=== PATIENT | female | born 1995 | race Caucasian/White ===

== ENCOUNTER 2019-11-22 03:47 | Emergency (ER) | payer MEDICAID ==
[~2019-11-22] VITALS: Ht 165.1 cm; Wt 65.8 kg
[2019-11-22 03:51] VITALS: BP 125/82
[2019-11-22 05:28] VITALS: BP 125/82
--- NOTE | 2019-11-22 05:28 | NUR ---
PATIENT [facility] POLICE DEPT. PATIENT EXAMINED BY DR. BALL. PATIENT MEDICALLY CLEARED AND RELEASED IN CUSTODY IN STABLE CONDITION. ORIGINAL PRE-BOOK FORM GIVEN TO OFFICER ALEXUS.
== END 2019-11-22 05:28 ==
LOC: MED 03:47
DX: S40.012A Contusion of left shoulder, initial encounter (principal); V49.69XA Unspecified car occupant injured in collision with other motor vehicles in traffic accident, initial encounter; Z00.00 Encounter for general adult medical examination without abnormal findings; Y93.89 Activity, other specified; Y92.410 Unspecified street and highway as the place of occurrence of the external cause; Y99.8 Other external cause status
CPT/HCPCS: 71045; 73030; 99284